=== PATIENT | female | born 1950 | race Caucasian/White ===

== ENCOUNTER 2020-03-15 09:02 | Emergency (ER) | payer MEDICARE, OTHER ==
[2020-03-15] MEDS ORDERED: Sodium Chloride 0.9% 10 ML Syringe FLUSH PRN (09:11)
[2020-03-15 09:17] VITALS: BP 196/65; PULSE 70
[2020-03-15] MEDS ORDERED: Aspirin 81 MG Tab.Chew PO ONE (09:22)
[2020-03-15 09:50] LABS: ANION GAP 12.9 mEq/L (7-13); CHLORIDE,CL 102 mmol/L (98-107); SODIUM,NA 140 mmol/L (136-145)
[2020-03-15 09:53] LABS: PTT,PARTIAL THROMBOPLSTIN TIME 25.6 SEC (22.0-34.0)
--- NOTE | 2020-03-15 10:01 | EDM.PDOC ---
Scribed by Cyndee Fiore 03/15/2029 for Barrett Márquez MD ED HPI GENERAL MEDICAL PROBLEM - General Chief Complaint: Chest Pain Stated Complaint: CHEST PAIN Time Seen by Provider: 03/15/20 09:13 Source of Information: Reports: Patient, RN, RN Notes Reviewed History Limitations: Reports: No Limitations - History of Present Illness INITIAL COMMENTS - FREE TEXT/NARRATIVE: Patient presents to ED by POV with complaint of onset of chest pain yesterday while doing light yard work. The chest pain is centered in the mid chest pressure-like in nature. Patient states that the pain would come and go yesterday without any trigger. This morning it was present when she awoke, but completely subsided prior to arriving to the hospital. Patient is pain free and symptoms free. Denies any radiating pain. Denies any shortness of breath. Onset Date: 03/14/20 Duration: Resolved Prior to Arrival Location: Reports: Chest Improves with: Reports: None Worsens with: Reports: None Associated Symptoms: Reports: No Other Symptoms - Related Data Allergies Allergy/AdvReac Type Severity Reaction Status Date / Time moxifloxacin [From Vigamox] Allergy Cannot Verified 03/15/20 09:11 Remember Penicillins Allergy Cannot Verified 03/15/20 09:11 Remember Home Meds: Home Meds Losartan [Cozaar] 50 mg PO DAILY 03/14/16 [History] Past Medical History HEENT History: Reports: Hard of Hearing, Impaired Vision Cardiovascular History: Reports: High Cholesterol, Hypertension Respiratory History: Reports: None Gastrointestinal History: Reports: None Genitourinary History: Reports: None 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: Musculoskeletal History: Reports: Osteoarthritis Neurological History: Reports: Other (See Below) Other Neuro History: HX OF TRANSIENT GLOBAL AMNESIA Psychiatric History: Reports: PTSD Endocrine/Metabolic History: Reports: None Hematologic History: Reports: Other (See Below) Other Hematologic History: HX OF [place] VIRUS INFECTION Immunologic History: Reports: None Oncologic (Cancer) History: Reports: None Dermatologic History: Reports: None - Infectious Disease History Infectious Disease History: Reports: Chicken Pox, Measles, Mumps, Shingles - Past Surgical History Female Surgical History: Reports: Breast Biopsy, Other (See Below) Oncologic Surgical History: Reports: Biopsy of Breast Social & Family History - Family History Family Medical History: Noncontributory - Tobacco Use Smoking Status *Q: Former Smoker - Recreational Drug Use Recreational Drug Use: No - Living Situation & Occupation Living situation: Reports: , with Spouse Occupation: Employed ED ROS GENERAL - Review of Systems Review Of Systems: Comprehensive ROS is negative, except as noted in HPI. ED EXAM, GENERAL - Physical Exam Exam: See Below Exam Limited By: No Limitations General Appearance: Alert, WD/WN, No Apparent Distress Eye Exam: Bilateral Eye: EOMI, Normal Inspection, PERRL Ears: Normal External Exam, Hearing Grossly Normal Nose: Normal Inspection, Normal Mucosa, No Blood Throat/Mouth: Normal Inspection, Normal Lips, Normal Teeth, Normal Gums, Normal Oropharynx, Normal Voice, No Airway Compromise Head: Atraumatic, Normocephalic Neck: Normal Inspection, Supple, Non-Tender, Full Range of Motion Respiratory/Chest: No Respiratory Distress, Lungs Clear, Normal Breath Sounds, No Accessory Muscle Use, Chest Non-Tender Cardiovascular: Normal Peripheral Pulses, Regular Rate, Rhythm, No Edema, No Gallop, No JVD, No Rub, Systolic Murmur (faint grade 1/6 KRISTYN) GI/Abdominal: Normal Bowel Sounds, Soft, Non-Tender, No Organomegaly, No Distention, No Abnormal Bruit, No Mass (Female) Exam: Deferred Rectal (Female) Exam: Deferred Back Exam: Normal Inspection, Full Range of Motion, NT Extremities: Normal Inspection, Normal Range of Motion, Non-Tender, Normal Capillary Refill, No Pedal Edema Neurological: Alert, Oriented, CN II-XII Intact, Normal Cognition, Normal Gait, No Motor/Sensory Deficits Psychiatric: Normal Affect, Normal Mood Skin Exam: Warm, Dry, Intact, Normal Color, No Rash EKG INTERPRETATION EKG Date: 03/15/20 Time: 09:18 Rhythm: Other (Sinus rhythm) Rate (Beats/Min): 66 [place]: Normal P-Wave: Present QRS: RBBB ST-T: Normal QT: Normal Course - Vital Signs Last Recorded V/S: Last Vital Signs Temp 97.9 F 03/15/20 09:14 Pulse 70 03/15/20 09:14 Resp 16 03/15/20 09:14 BP 196/65 H 03/15/20 09:14 Pulse Ox 97 03/15/20 09:14 - Orders/Labs/Meds Orders: Active Orders 24 hr Category Date Time Status EKG 12 Lead [EKG Documentation Completion] [RC] STAT Care 03/15/20 09:11 Active Peripheral IV Care [RC] . DIRECTED Care 03/15/20 09:12 Active Chest 1V Frontal [CR] Stat Exams 03/15/20 09:11 Taken Sodium Chloride 0.9% [Saline Flush] Med 03/15/20 09:11 Active 10 ml FLUSH ASDIRECTED PRN Peripheral IV Insertion Adult [OM.PC] Stat Oth 03/15/20 09:11 Ordered Medication Orders Sodium Chloride (Saline Flush) 10 ml FLUSH ASDIRECTED PRN PRN Reason: Keep Vein Open Last Admin: 03/15/20 09:25 Dose: 10 ml Documented by: WILLIE Labs: Laboratory Tests 03/15/20 03/15/20 03/15/20 Range/Units 09:23 09:23 09:23 WBC 6.6 (5.0-10.0) 10^3/uL RBC 4.95 (4.2-5.4) 10^6/uL Hgb 13.8 (12.0-16.0) g/dL Hct 41.0 (37.0-47.0) % MCV 82.8 (80-100) fL MCH 27.9 (27.0-34.0) pg MCHC 33.7 (33.0-35.0) g/dL Plt Count 218 (150-450) 10^3/uL Neut % (Auto) 61.7 (42.2-75.2) % Lymph % (Auto) 25.3 (20.5-50.1) % [place] % (Auto) 9.2 H (2-8) % Eos % (Auto) 2.9 (1.0-3.0) % Baso % (Auto) 0.9 (0.0-1.0) % PT 10.4 (9.0-12.0) SEC INR 1.1 (0.9-1.2) APTT 25.6 (22.0-34.0) SEC D-Dimer, Quantitative (0-400) ng/mL Sodium 140 (136-145) mmol/L Potassium 3.9 (3.5-5.1) mmol/L Chloride 102 (98-107) mmol/L Carbon Dioxide 29 (21-32) mmol/L Anion Gap 12.9 (7-13) mEq/L BUN 13 (7-18) mg/dL Creatinine 0.95 (0.55-1.02) mg/dL Est Cr Clr Drug Dosing 46.88 mL/min Estimated GFR (MDRD) 58 BUN/Creatinine Ratio 13.7 (No establ ref range) Glucose 96 (74-99) mg/dL Calcium 9.0 (8.5-10.1) mg/dL Total Bilirubin 0.7 (0.2-1.0) mg/dL AST 19 (15-37) U/L ALT 24 (14-59) U/L Alkaline Phosphatase 71 (46-116) U/L Troponin I < 0.017 (0.000-0.056) ng/mL Total Protein 7.4 (6.4-8.2) g/dL Albumin 4.0 (3.4-5.0) g/dL Globulin 3.4 Albumin/Globulin Ratio 1.2 Amylase 31 (25-115) U/L Lipase 95 (73-393) U/L 08// Range/Units 09:23 WBC (5.0-10.0) 10^3/uL RBC (4.2-5.4) 10^6/uL Hgb (12.0-16.0) g/dL Hct (37.0-47.0) % MCV (80-100) fL MCH (27.0-34.0) pg MCHC (33.0-35.0) g/dL Plt Count (150-450) 10^3/uL Neut % (Auto) (42.2-75.2) % Lymph % (Auto) (20.5-50.1) % [place] % (Auto) (2-8) % Eos % (Auto) (1.0-3.0) % Baso % (Auto) (0.0-1.0) % PT (9.0-12.0) SEC INR (0.9-1.2) APTT (22.0-34.0) SEC D-Dimer, Quantitative 106 (0-400) ng/mL Sodium (136-145) mmol/L Potassium (3.5-5.1) mmol/L Chloride (98-107) mmol/L Carbon Dioxide (21-32) mmol/L Anion Gap (7-13) mEq/L BUN (7-18) mg/dL Creatinine (0.55-1.02) mg/dL Est Cr Clr Drug Dosing mL/min Estimated GFR (MDRD) BUN/Creatinine Ratio (No establ ref range) Glucose (74-99) mg/dL Calcium (8.5-10.1) mg/dL Total Bilirubin (0.2-1.0) mg/dL AST (15-37) U/L ALT (14-59) U/L Alkaline Phosphatase (46-116) U/L Troponin I (0.000-0.056) ng/mL Total Protein (6.4-8.2) g/dL Albumin (3.4-5.0) g/dL Globulin Albumin/Globulin Ratio Amylase (25-115) U/L Lipase (73-393) U/L Meds: Medications Generic Name Dose Route Start Last Admin Trade Name Freq PRN Reason Stop Dose Admin Sodium Chloride 10 ml 03/15/20 09:11 03/15/20 09:25 Saline Flush FLUSH 10 ml ASDIRECTED PRN Administration Keep Vein Open Discontinued Medications Generic Name Dose Route Start Last Admin Trade Name Freq PRN Reason Stop Dose Admin Aspirin 324 mg 03/15/20 09:22 03/15/20 09:25 Aspirin PO 03/15/20 09:23 324 mg ONETIME ONE Administration - Radiology Interpretation Free Text/Narrative:: Chest x-ray: Normal. See rad report. - Re-Assessments/Exams Free Text/Narrative Re-Assessment/Exam: 03/15/20 09:58 Pt remained pain and symptom free from arrival to discharge. She has negative troponin and benign exam. Plan to d/c pt to home with clinic f/u for recheck and consideration of cardiac stress test. Departure - Departure Time of Disposition: 09:59 Disposition: Home, Self-Care 01 Condition: Good Clinical Impression: Atypical chest pain Instructions: Nonspecific Chest Pain, Adult, [id number] Forms: ED Department Discharge Additional Instructions: Follow up in clinic with you doctor this week for recheck and consideration of a cardiac stress test. Sepsis Event Note (ED) - Focused Exam Vital Signs: Vital Signs Temp Pulse Resp BP Pulse Ox 03/15/20 09:14 97.9 F 70 16 196/65 H 97 - My Orders Last 24 Hours: My Active Orders 03/15/20 09:11 EKG 12 Lead [EKG Documentation Completion] [RC] STAT Chest 1V Frontal [CR] Stat Sodium Chloride 0.9% [Saline Flush] 10 ml FLUSH ASDIRECTED PRN Peripheral IV Insertion Adult [OM.PC] Stat 03/15/20 09:12 Peripheral IV Care [RC] . DIRECTED - Assessment/Plan Last 24 Hours: My Active Orders 03/15/20 09:11 EKG 12 Lead [EKG Documentation Completion] [RC] STAT Chest 1V Frontal [CR] Stat Sodium Chloride 0.9% [Saline Flush] 10 ml FLUSH ASDIRECTED PRN Peripheral IV Insertion Adult [OM.PC] Stat 03/15/20 09:12 Peripheral IV Care [RC] . DIRECTED I have read and agree with the documentation that has been completed regarding this visit. By signing this record, I attest that the documentation was completed in my physical presence and is an accurate record of the encounter.
--- NOTE | 2020-03-15 10:04 | CR ---
PROCEDURE INFORMATION: Exam: XR Chest, 1 View Exam date and time: 03/15/2020 9:34 AM Age: 69 years old Clinical indication: Chest pain TECHNIQUE: Imaging protocol: XR of the chest Views: 1 view. COMPARISON: No relevant prior studies available. FINDINGS: Lungs: Unremarkable. No consolidation. Pleural space: Unremarkable. No pleural effusion. No pneumothorax. Heart/Mediastinum: Unremarkable. No cardiomegaly. Bones/joints: Unremarkable. IMPRESSION: No acute chest disease.
== END 2020-03-15 10:09 | disposition home or self-care (01) ==
LOC: DL.ED 09:02
DX: R07.89 Other chest pain (principal); I10 Essential (primary) hypertension; Z88.1 Allergy status to other antibiotic agents; Z88.0 Allergy status to penicillin; Z79.899 Other long term (current) drug therapy; Z87.891 Personal history of nicotine dependence
CPT/HCPCS: 36415; 71045; 80053; 82150; 83690; 84484; 85025; 85379; 85610; 85730; 93005; 99285; A9270

== ENCOUNTER 2021-09-14 19:26 | Emergency (ER) | payer MEDICARE, OTHER ==
[2021-09-14] MEDS ORDERED: Omeprazole 20 MG Cap.CR PO ONE (19:27)
[2021-09-14 21:04] LABS: ANION GAP 12.8 mEq/L (7-13); CHLORIDE,CL 104 mmol/L (98-107); SODIUM,NA 140 mmol/L (136-145)
[2021-09-14] MEDS ORDERED: GI Cocktail Oral Solution 30 ML PO ONE (21:07)
[2021-09-14] MEDS ORDERED: Omeprazole 20 MG Cap.CR ONE (21:45)
[2021-09-14 22:02] VITALS: BP 141/64; PULSE 68
== END 2021-09-14 21:50 | disposition home or self-care (01) ==
LOC: DL.ED 19:26
DX: K21.9 Gastro-esophageal reflux disease without esophagitis (principal); I45.10 Unspecified right bundle-branch block; E78.00 Pure hypercholesterolemia, unspecified; I10 Essential (primary) hypertension; Z79.899 Other long term (current) drug therapy; Z88.1 Allergy status to other antibiotic agents; Z88.0 Allergy status to penicillin
CPT/HCPCS: 36415; 71045; 80053; 82150; 83605; 83690; 83880; 84484; 85025; 93005; 93010; 99285; A9270

== ENCOUNTER 2021-12-02 12:36 | Emergency (ER) | payer MEDICARE ==
[2021-12-02 12:52] VITALS: BP 173/76; PULSE 72
[2021-12-02 13:18] LABS: PTT,PARTIAL THROMBOPLSTIN TIME 19.7 SEC (22.0-34.0)
[2021-12-02 13:29] LABS: ANION GAP 12.5 mEq/L (7-13); CHLORIDE,CL 100 mmol/L (98-107); SODIUM,NA 139 mmol/L (136-145)
[2021-12-02 13:48] LABS: CORONAVIRUS COVID-19 NAA NEGATIVE (NEGATIVE); RESPIRATORY SYNCYTIAL VIR NAA NEGATIVE (NEGATIVE)
[2021-12-02 13:58] LABS: AMPHETAMINES,URINE NEGATIVE (NEGATIVE); BARBITURATES,URINE NEGATIVE (NEGATIVE); BENZODIAZEPINE,URINE NEGATIVE (NEGATIVE); MDMA (ECSTASY), URINE NEGATIVE (NEGATIVE); METHADONE,URINE NEGATIVE (NEGATIVE); METHAMPHETAMINES,URINE NEGATIVE (NEGATIVE); OPIATES,URINE NEGATIVE (NEGATIVE); OXYCODONE,URINE NEGATIVE (NEGATIVE); PHENCYCLIDINE,URINE NEGATIVE (NEGATIVE); TCA,URINE NEGATIVE (NEGATIVE)
[2021-12-02] MEDS ORDERED: Heparin Sodium 5,000 Units/ML Vial IVPUSH ONE (17:36)
[2021-12-02] MEDS ORDERED: Heparin Sodium/0.45% NaCl 25,000 UNITS/500 ML BAG IV SCH (17:45)
== END 2021-12-02 18:32 ==
LOC: DL.ED 12:36
DX: I21.4 Non-ST elevation (NSTEMI) myocardial infarction (principal); E78.00 Pure hypercholesterolemia, unspecified; I10 Essential (primary) hypertension; Z88.1 Allergy status to other antibiotic agents; Z88.0 Allergy status to penicillin; Z79.899 Other long term (current) drug therapy; Z20.822 Contact with and (suspected) exposure to COVID-19
CPT/HCPCS: 0241U; 36415; 71045; 80053; 80305-QW; 80307; 81001; 82150; 83605; 83690; 83735; 83880; 84443; 84484; 85025; 85610; 85730; 86140; 87086; 93005; 93010; 96374; 96376; 99285; 99285-25; J1644

== ENCOUNTER 2021-12-11 21:03 | Emergency (ER) | payer MEDICARE ==
[2021-12-11] MEDS ORDERED: Sodium Chloride 0.9% 10 ML Syringe FLUSH PRN (21:19)
[2021-12-11] MEDS ORDERED: Aspirin 81 MG Tab.Chew PO ONE (21:52)
[2021-12-11 21:57] LABS: ANION GAP 13.4 mEq/L (7-13); CHLORIDE,CL 102 mmol/L (98-107); SODIUM,NA 137 mmol/L (136-145)
[2021-12-12] MEDS ORDERED: Morphine 2 MG/ML SYRINGE IVPUSH ONE ×2 (01:02→01:39)
[2021-12-12 01:19] VITALS: BP 162/60; PULSE 62
== END 2021-12-12 02:35 ==
LOC: DL.ED 21:03
DX: R07.9 Chest pain, unspecified (principal); R77.8 Other specified abnormalities of plasma proteins; E78.00 Pure hypercholesterolemia, unspecified; I10 Essential (primary) hypertension; Z88.0 Allergy status to penicillin; Z88.1 Allergy status to other antibiotic agents; Z79.82 Long term (current) use of aspirin; Z79.899 Other long term (current) drug therapy; Z79.02 Long term (current) use of antithrombotics/antiplatelets; Z20.822 Contact with and (suspected) exposure to COVID-19
CPT/HCPCS: 36415; 71045; 80053; 83690; 83735; 84484; 85025; 85610; 86140; 93005; 96374; 96376; 99285-25; A9270-GY; J2270; J3490; U0002